=== PATIENT | female | born 1995 | race African-American/Black ===

== ENCOUNTER 2019-10-08 23:49 | Inpatient (IN) | payer OTHER ==
[~2019-10-08] VITALS: Ht 167.6 cm; Wt 80.7 kg
[2019-10-09] MEDS: DEXT 5%/LR + PITOCIN 20UNITS/L 1,000 ML IV SCH ×2 (00:15→06:33)
[2019-10-09] MEDS ORDERED: PREN1TAB78 PO (00:30)
[2019-10-09] MEDS ORDERED: DEXT 5%/LR + PITOCIN 20UNITS/L 1,000 ML IV SCH (02:42)
[2019-10-09] MEDS ORDERED: METHYLERGONOVINE MALEATE 0.2 MG/ML IM PRN (02:45)
[2019-10-09] MEDS ORDERED: NALOXONE HCL 0.4 MG/ML 1ML VIAL IM PRN (02:45)
[2019-10-09] MEDS ORDERED: ACETAMINOPHEN 500MG TABLET PO NR (02:45)
[2019-10-09] MEDS ORDERED: CARBOPROST TROMETHAMINE 250 MCG/ML AMPUL IM PRN (02:45)
[2019-10-09 03:29] LABS: HEMATOCRIT. 34.1 % (36.0-48.0); HEMOGLOBIN. 11.6 g/dL (12.0-16.0); MEAN CORPUSCULAR VOLUME 87.9 fL (81.0-99.0); MEAN PLATELET VOLUME 10.9 fl (7.4-10.4); PLATELET 86 x1000/uL (130-400); RED BLOOD CELL COUNT 3.88 mill/uL (4.2-5.4)
[2019-10-09 03:33] LABS: PARTIAL THROMBOPLASTIN TIME 27.9 sec (23.4-31.0); PROTHROMBIN TIME 10.6 sec (9.6-11.0)
[2019-10-09] MEDS ORDERED: CITRIC ACID/SODIUM CITRATE SOLN 30ML UDC PO NR (03:45)
[2019-10-09] MEDS: LACTATED RINGERS 1,000 ML IV SCH ×2 (04:16→05:52)
[2019-10-09 04:21] LABS: HEPATITIS B SURFACE ANTIGEN NEGATIVE
[2019-10-09 04:47] LABS: CLARITY URINE CLEAR (CLEAR); COLOR URINE YELLOW (YELLOW); KETONES URINE NEGATIVE (NEGATIVE); LEUKOCYTE ESTERASE URINE NEGATIVE (NEGATIVE); NITRITE URINE NEGATIVE (NEGATIVE); OCCULT BLOOD URINE NEGATIVE (NEGATIVE); PROTEIN URINE TRACE (NEGATIVE); SPECIFIC GRAVITY URINE 1.014 (1.005-1.030)
[2019-10-09 04:56] LABS: *AMPHETAMINES SCREEN URINE NEGATIVE (NEGATIVE); *BARBITURATES SCREEN URINE NEGATIVE (NEGATIVE); *BENZODIAZEPINES SCREEN URINE NEGATIVE (NEGATIVE); *COCAINE SCREEN URINE NEGATIVE (NEGATIVE); METHADONE URINE SCREEN NEGATIVE (NEGATIVE)
[2019-10-09 04:57] LABS: CANNABINOID URINE SCREEN NEGATIVE (NEGATIVE); OPIATES URINE SCREEN NEGATIVE (NEGATIVE); PHENCYCLIDINE URINE SCREEN NEGATIVE (NEGATIVE)
[2019-10-09 06:21] LABS: PLATELET ESTIMATE DECREASED
[2019-10-09] MEDS ORDERED: FENTANYL CITRATE/PF 50MCG/ML 2ML VIAL ONE (06:34)
[2019-10-09] MEDS ORDERED: ONDANSETRON HCL 4MG/2ML INJ IV PRN (06:45)
[2019-10-09] MEDS ORDERED: LANOLIN OINT 7GM TUBE TOP PRN (06:45)
[2019-10-09] MEDS ORDERED: IBUPROFEN 400MG TABLET PO PRN (06:45)
[2019-10-09] MEDS ORDERED: RHO(D) IMMUNE GLOBULIN 300 MCG/SYR IM PRN (06:45)
[2019-10-09] MEDS ORDERED: CEFAZOLIN SODIUM 1000MG/VIAL ONE (06:57)
[2019-10-09] MEDS ORDERED: OXYTOCIN 10 UNITS/ML 1ML ONE (07:09)
[2019-10-09] MEDS ORDERED: ONDANSETRON HCL 4MG/2ML INJ ONE (07:09)
[2019-10-09] MEDS ORDERED: METOCLOPRAMIDE HCL 10MG/2ML VIAL ONE (07:09)
[2019-10-09] MEDS ORDERED: MEPERIDINE HCL/PF 25MG/ML CPJ IV PRN (08:45)
[2019-10-09] MEDS ORDERED: FENTANYL CITRATE/PF 50MCG/ML 2ML VIAL IV PRN ×3 (08:45)
[2019-10-09] MEDS ORDERED: DIPHENHYDRAMINE 50MG/ML VIAL IM PRN (08:45)
[2019-10-09] MEDS ORDERED: DEXAMETHASONE 10 MG/ML VIAL IV PRN (08:45)
[2019-10-09] MEDS ORDERED: DIPHENHYDRAMINE 50MG/ML VIAL IV PRN (08:45)
[2019-10-09] MEDS ORDERED: IBUPROFEN 800 MG in SODIUM CHLORIDE 0.9% 250 ML IV PRN (08:45)
[2019-10-09 11:20] VITALS: BP 125/82
[2019-10-09 11:53] VITALS: BP 129/80
[2019-10-09] MEDS: KETOROLAC 30MG/ML VIAL IV PRN ×2 (12:18→21:11)
[2019-10-09 16:00] VITALS: BP 126/78
[2019-10-09] MEDS: TRAMADOL 50MG TABLET PO PRN ×2 (16:45→23:06)
[2019-10-09 19:30] VITALS: BP 107/72
[2019-10-09] MEDS: DOCUSATE SODIUM 100MG CAPSULE PO SCH (21:06)
[2019-10-10] VITALS: BP 103/71
[2019-10-10 04:00] VITALS: BP 108/75
[2019-10-10] MEDS: KETOROLAC 30MG/ML VIAL IV PRN (04:10)
[2019-10-10 05:47] LABS: BASOPHILS % 0.2 % (0.0-2.0); EOSINOPHILS % 0.8 % (0.0-5.0); HEMOGLOBIN. 9.5 g/dL (12.0-16.0); LYMPHOCYTES % 15.9 % (20.0-50.0); MEAN CORPUSCULAR HEMOGLOBIN 30.9 pg (28.0-32.0); MEAN CORPUSCULAR VOLUME 87.4 fL (81.0-99.0); MEAN PLATELET VOLUME 10.8 fl (7.4-10.4); MONOCYTES % 7.5 % (2.0-8.0); NEUTROPHILS % 75.6 % (40.0-76.0); PLATELET 70 x1000/uL (130-400); RED BLOOD CELL COUNT 3.09 mill/uL (4.2-5.4); RED CELL DISTRIBUTION WIDTH 16.6 % (11.6-14.6)
[2019-10-10 08:00] VITALS: BP 108/77
[2019-10-10] MEDS: IBUPROFEN 800MG TABLET PO PRN ×2 (09:01→18:14)
[2019-10-10 12:00] VITALS: BP 105/66
[2019-10-10 16:04] VITALS: BP 101/61
[2019-10-10 19:30] VITALS: BP 98/69
[2019-10-10] MEDS: DOCUSATE SODIUM 100MG CAPSULE PO SCH (21:05)
[2019-10-11 04:00] VITALS: BP 126/84
[2019-10-11] MEDS: IBUPROFEN 800MG TABLET PO PRN (04:45)
[2019-10-11] MEDS ORDERED: IBUP-2030 PO (07:50)
[2019-10-11 08:00] VITALS: BP 110/71
== END 2019-10-11 12:40 | disposition home or self-care (01) | DRG 540 ==
LOC: 8 EST LDRP 23:49 → OBSVTOIN 23:49 → 8EST NSY 10-09 10:59 → 8EST 10-09 12:02
PROVIDERS: ADMIT Obstetrics & Gynecology; ATTEND Obstetrics & Gynecology
PROC: 10D00Z1 Extraction of Products of Conception, Low, Open Approach (ICD-10-PCS; principal; 2019-10-09)
DX: O34.219 Maternal care for unspecified type scar from previous cesarean delivery (principal); D57.1 Sickle-cell disease without crisis; Z3A.39 39 weeks gestation of pregnancy; Z37.0 Single live birth; O99.02 Anemia complicating childbirth
CPT/HCPCS: 36415; 76805; 76818; 80305; 81003; 85025; 86592; 86644; 86703; 86762; 86850; 86900; 86920; 87340; 88307; 99281; J0690; J1200; J1885; J2405; J2590; J2765; J3010